=== PATIENT | male | born 1985 | race Caucasian/White ===

== ENCOUNTER 2024-10-24 14:55 | Emergency (ER) | payer BC ==
[2024-10-24 15:45] LABS: BASOPHILS PERCENT AUTO 0.9 % (0.0-1.0); EOSINOPHILS PERCENT AUTO 0.9 % (0.0-6.0); HEMATOCRIT 41.3 % (42.0-52.0); HEMOGLOBIN 14.1 gm/dl (14.0-18.0); IMMATURE GRAN ABSOLUTE AUTO 0.01 K/mm3 (0.00-0.05); IMMATURE GRAN PERCENT AUTO 0.4 % (0.0-0.4); LYMPHOCYTES ABSOLUTE AUTO 0.7 K/mm3 (1.0-4.8); MEAN CORPUSCULAR HEMOGLOBIN 27.5 pg (28.0-32.0); MEAN CORPUSCULAR HGB CONC 34.1 g/dl (32.0-36.0); MEAN CORPUSCULAR VOLUME 80.7 fl (83.0-99.0); MEAN PLATELET VOLUME 9.2 fl (9.4-12.4); MONOCYTES ABSOLUTE AUTO 0.3 K/mm3 (0.0-0.8); MONOCYTES PERCENT AUTO 11.5 % (0.0-8.0); NEUTROPHILS ABSOLUTE AUTO 1.3 K/mm3 (1.8-7.7); NEUTROPHILS PERCENT AUTO 56.3 % (41.0-71.0); PLATELET COUNT,PLT 155 K/mm3 (150-400); RED BLOOD CELL COUNT 5.12 M/mm3 (4.52-5.90)
[2024-10-24] MEDS ORDERED: Lactated Ringers 1,000 ML IV ONE (15:46)
[2024-10-24] MEDS ORDERED: methylPREDNISolone Sodium Succinate 125 MG/2 ML SDV IVPUSH ONE (15:46)
[2024-10-24 15:58] LABS: WHITE BLOOD CELL COUNT,WBC 2.27 K/mm3 (3.9-11.3)
[2024-10-24] MEDS: Albuterol/Ipratropium 3.0-0.5 MG/3 ML Neb Soln NEB ONE (16:07)
[2024-10-24 16:11] LABS: A/G RATIO 0.9 (1-2); ALBUMIN 3.6 g/dl (3.4-5.0); BILIRUBIN TOTAL 1.4 mg/dL (0.2-1.0); CALCIUM 8.4 mg/dL (8.5-10.1); CREATININE 1.3 mg/dL (0.7-1.3); EST CRCL DRUG DOSING (CG) 95.52 mL/min; PROTEIN TOTAL,TP 7.5 g/dl (6.4-8.2)
== END 2024-10-24 17:09 | disposition home or self-care (01) ==
LOC: JD.ED 14:55
DX: J10.1 Influenza due to other identified influenza virus with other respiratory manifestations (principal); D72.819 Decreased white blood cell count, unspecified
CPT/HCPCS: 36415; 80053; 85025; 87428-QW; 87651-QW; 94640; 99284; 99285; J7620-GY

== ENCOUNTER 2025-08-17 05:14 | Emergency (ER) | payer BC ==
[2025-08-17] MEDS: Fluorescein 1 MG Ophth Strip EYEBOTH ONE (07:32)
[2025-08-17] MEDS: Ondansetron 4 MG Tab.DIS PO ONE (07:37)
== END 2025-08-17 08:02 | disposition home or self-care (01) ==
LOC: JD.ED 05:14
DX: S05.02XA Injury of conjunctiva and corneal abrasion without foreign body, left eye, initial encounter (principal); H04.532 Neonatal obstruction of left nasolacrimal duct; F17.200 Nicotine dependence, unspecified, uncomplicated; Z86.16 Personal history of COVID-19; W22.8XXA Striking against or struck by other objects, initial encounter
CPT/HCPCS: 99283; A9270; 99284; J3490